=== PATIENT | female | born 2000 | race Hispanic/Latino ===

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

== ENCOUNTER 2024-02-12 10:27 | Emergency (ER) | payer SELFPAY ==
[2024-02-12] MEDS ORDERED: DIPHENHYDRAMINE 50 MG/ML VIAL ONE ×2 (11:02→11:04)
[2024-02-12] MEDS ORDERED: dexAMETHasone 10 MG/ML VIAL ONE ×2 (11:02→11:04)
--- NOTE | 2024-02-12 11:19 | ER ---
Nurse's Notes [facility] [place] Name: Yoselin Valdes Age: 23 yrs Sex: Female : 2000 Arrival Date: 02/12/2024 Time: 10:27 Bed 11 Private MD: Diagnosis: Allergic urticaria Presentation: 02/11 11:12 Chief complaint: Patient states: itchy rash to entire body that started Wed, denies ph other symptoms. Coronavirus screen: Vaccine status: Patient reports being unvaccinated. Ebola Screen: No symptoms or risks identified at this time. Initial Sepsis Screen: Does the patient meet any 2 criteria? Yes Does the patient have a suspected source of infection? No. Patient's initial sepsis screen is negative. Risk Assessment: Do you want to hurt yourself or someone else? Patient reports no desire to harm self or others. Onset of symptoms was February 12, 2024. 11:12 Method Of Arrival: Ambulatory ph 11:12 Acuity: ROBERT 4 ph Triage Assessment: 11:13 General: Appears in no apparent distress. Behavior is calm, cooperative, Denies fever. ph Pain: Denies pain. Derm: Skin is pink, warm \T\ dry. Rash noted that is itchy, red, raised, on face, scalp, back, buttocks, chest, abdomen, pelvis, right arm, left arm, right leg and left leg. Historical: - Allergies: 11:13 No Known Allergies; ph - PMHx: 11:13 Unable to Obtain; ph - Immunization history:: Adult Immunizations unknown. - Infectious Disease History:: Denies. - Social history:: Smoking status: unknown. Screenin:14 [facility] ED Fall Risk Assessment (Adult) History of falling in the last 3 months, ph including since admission No falls in past 3 months (0 pts) Confusion or Disorientation No (0 pts) Intoxicated or Sedated No (0 pts) Impaired Gait No (0 pts) Mobility Assist Device Used No (0 pt) Altered Elimination No (0 pt) Score/Fall Risk Level 0 - 2 = Low Risk Oriented to surroundings, Maintained a safe environment, Hourly rounding (assess needs \T\ fall precautionary measures) done. Abuse screen: Denies threats or abuse. Denies injuries from another. Nutritional screening: No deficits noted. Tuberculosis screening: No symptoms or risk factors identified. Assessment: 11:30 General: SEE TRIAGE ASSESSMENT. ph Vital Signs: 11:12 BP 134 / 87; Pulse 79; Resp 18; Temp 97.8; Pulse Ox 98% on R/A; ph 11:55 BP 127 / 86; Pulse 72; Resp 16; Temp 97.8; Pulse Ox 99% on R/A; ph ED Course: 10:28 Patient arrived in ED. 4 10:30 [facility] 10:30 Gabriel Quinn MD is Attending Physician. [facility] 11:11 Macey Piper, RN is Primary Nurse. ph 11:13 Triage completed. ph 11:13 Arm band placed on Patient placed in an exam room, on a stretcher. ph 11:14 Patient has correct armband on for positive identification. Bed in low position. Call ph light in reach. 11:18 Gabriel Quinn MD is Referral Physician. [facility] 11:55 No provider procedures requiring assistance completed. Patient did not have IV access ph during this emergency room visit. Administered Medications: 11:14 Drug: Dexamethasone IM 10 mg IM once Route: IM; Site: left deltoid; ph 11:55 Follow up: Response: No adverse reaction ph 11:14 Drug: diphenhydrAMINE IM 25 mg IM once Route: IM; Site: left deltoid; ph 11:55 Follow up: Response: No adverse reaction ph Medication: 11:14 VIS not applicable for this client. ph Outcome: 11:18 Discharge ordered by . [facility] 11:56 Patient left the ED. 11:56 Discharged to home ambulatory, with family, ph 11:56 Condition: good 11:56 Discharge instructions given to patient, Instructed on discharge instructions, follow up and referral plans. medication usage, Demonstrated understanding of instructions, follow-up care, medications, Prescriptions given X 2, Signatures: Macey Piper RN RN ph Baxter, Heather, RN RN hb Garcia, Rubi 4 Eulalia Elise FNP FNP [facility]
--- NOTE | 2024-02-12 11:19 | EDPHYS ---
Physician Documentation [facility] Name: Yoselin Valdes Age: 23 yrs Sex: Female : 2000 Arrival Date: 02/12/2024 Time: 10:27 Bed 11 Private MD: ED Physician Gabriel Quinn HPI: 02/11 10:30 This 23 yrs old Female presents to ER via Unassigned with complaints of Rash. jh7 10:30 23-year-old female with no past medical history presents to the ER for hives on her jh7 body worsening since Wednesday. The patient denies any new pets, allergies, detergents, foods, or any new changes. Reports that the hives initially started on her face and have now moved all over her body. Denies fever, difficulty breathing, or swelling. She reports the rash is itchy.. Historical: - Allergies: 11:13 No Known Allergies; ph - PMHx: 11:13 Unable to Obtain; ph - Immunization history:: Adult Immunizations unknown. - Infectious Disease History:: Denies. - Social history:: Smoking status: unknown. ROS: 10:30 Constitutional: Per HPI 7 Exam: 10:30 Constitutional: This is a well developed, well nourished patient who is awake, alert, jh7 and in no acute distress. Head/Face: Normocephalic, atraumatic. ENT: Nares patent. No nasal discharge, no septal abnormalities noted. Oropharynx with no redness, swelling, or masses, exudates, or evidence of obstruction, uvula midline. Mucous membranes moist. Cardiovascular: Regular rate and rhythm with a normal S1 and S2. No gallops, murmurs, or rubs. Normal PMI, no JVD. No pulse deficits. Respiratory: Lungs have equal breath sounds bilaterally, clear to auscultation and percussion. No rales, rhonchi or wheezes noted. No increased work of breathing, no retractions or nasal flaring. Abdomen/GI: Soft, non-tender, with normal bowel sounds. No distension or tympany. No guarding or rebound. No evidence of tenderness throughout. MS/ Extremity: Pulses equal, no cyanosis. Neurovascular intact. Full, normal range of motion. Neuro: Awake and alert, GCS 15, oriented to person, place, time, and situation. Motor strength 5/5 in all extremities. Sensory grossly intact. Normal gait. 10:30 Skin: urticaria, and is diffusely located, Vital Signs: 11:12 BP 134 / 87; Pulse 79; Resp 18; Temp 97.8; Pulse Ox 98% on R/A; ph 11:55 BP 127 / 86; Pulse 72; Resp 16; Temp 97.8; Pulse Ox 99% on R/A; ph MDM: 10:30 Patient medically screened. [facility] 11:18 Differential diagnosis: allergic reaction, Idiopathic hives, contact dermatitis. Data [facility] reviewed: vital signs, nurses notes. I considered the following discharge prescriptions or medication management in the emergency department Medications were administered in the Emergency Department. See MAR. Historians other than the Patient: Parent: mom. Counseling: I had a detailed discussion with the patient and/or guardian regarding the historical points, exam findings, and any diagnostic results supporting the discharge/admit diagnosis, to return to the emergency department if symptoms worsen or persist or if there are any questions or concerns that arise at home. Response to treatment: the patient's symptoms have mildly improved after treatment. Administered Medications: 11:14 Drug: Dexamethasone IM 10 mg IM once Route: IM; Site: left deltoid; ph 11:55 Follow up: Response: No adverse reaction ph 11:14 Drug: diphenhydrAMINE IM 25 mg IM once Route: IM; Site: left deltoid; ph 11:55 Follow up: Response: No adverse reaction ph Disposition Summary: 02/12/24 11:18 Discharge Ordered Notes: Location: Home [facility] Problem: new [facility] Symptoms: have improved [facility] Condition: Stable [facility] Diagnosis - Allergic urticaria [facility] Followup: [facility] - With: Private Physician - When: 2 - 3 days - Reason: Recheck today's complaints Discharge Instructions: - Discharge Summary Sheet [facility] - Hives [facility] - Rash, Adult [facility] Forms: - Medication Reconciliation Form [facility] - Patient Portal Instructions [facility] - Leadership Thank You Letter [facility] Prescriptions: - Hydroxyzine HCl 25 mg Oral Tablet - take 1 tablet ORAL route every 6 hours As needed; 12 tablet; Refills: 0, 7 Product Selection Permitted - Medrol (Loyd) 4 mg Oral Tablets, Dose Pack - take 1 tablet ORAL route as directed - follow package instructions; 1 packet; [facility] Refills: 0, Product Selection Permitted Addendum: 02/15/2024 14:10 I was immediately available for consultation during this patient's visit. I did not e c2 personally see the patient or discuss the patient with the LUCY. . Signatures: Macey Piper, GOSIA RN Eulalia Palma, RESPIRATORY CARE ASSISTANT RESPIRATORY CARE ASSISTANT jh7 Gabriel Quinn MD MD ec2
[2024-02-12 12:15] VITALS: BP 134/87; TEMP 97.8; O2SAT 98
== END 2024-02-12 11:56 | disposition home or self-care (01) ==
LOC: ER 10:27
DX: L50.0 Allergic urticaria (principal)
CPT/HCPCS: 96372; 99284; J1100; J1200